=== PATIENT | male | born 1975 | race Caucasian/White ===

== ENCOUNTER 2023-10-26 10:50 | Emergency (ER) | payer BC, MEDICARE, SELFPAY ==
[2023-10-26 11:10] VITALS: BP 140/97
[2023-10-26 11:34] LABS: Urine Albumin Negative (Neg - Trace); Urine Bilirubin Negative (Negative); Urine Character Clear (Clear); Urine Color Yellow; Urine Glucose Negative (Negative); Urine Ketone Negative (Negative); Urine Leukocyte Negative (Negative); Urine Nitrite Negative (Negative); Urine Occult Blood Negative (Negative); Urine Specific Gravity 1.015 (<1.030); Urine Urobilinogen Negative (Neg - 1+)
[2023-10-26 11:36] LABS: % Basophils 0.6 % (0-2); % Eosinophils 0.4 % (0-6); % Immature Granulocytes 0.3 % (0-0.5); % Lymphocytes 26.9 % (20.5-51.1); % Monocytes 7.3 % (1.7-9.3); % Neutrophils 64.5 % (42.2-75.2); Absolute Basophils 0.1 10^3/uL (0-0.2); Absolute Lymphocytes 2.1 10^3/uL (1.2-3.4); Absolute Monocytes 0.6 10^3/uL (0.1-0.6); Absolute Neutrophils 5.2 10^3/uL (1.4-6.5); Hematocrit 47.9 % (39.0-52.0); Hemoglobin 16.6 g/dL (13.0-18.0); Mean Corp Hgb Conc. 34.7 g/dL (33.0-37.0); Mean Corpuscular Volume 86.5 fL (80.0-94.0); Mean Platelet Volume 10.2 fL (7.4-10.4); Nucleated Red Blood Cells % 0 % (-); Platelet Count 332 10^3/uL (130-400); Red Blood Cell Count 5.54 10^6/uL (4.70-6.10)
[2023-10-26 11:51] LABS: ALT (SGPT) 25 U/L (0-50); AST (SGOT) 22 U/L (17-59); Albumin 4.6 g/dl (3.5-5.0); Alkaline Phosphatase 69 U/L (38-126); Blood Urea Nitrogen 14 mg/dl (9-20); Calcium 10.4 mg/dl (8.4-10.2); Carbon Dioxide 25 mmol/L (22-30); Chloride 104 mmol/L (98-107); Glucose 98 mg/dl (70-99); Potassium 4.1 mmol/L (3.5-5.1); Sodium 142 mmol/L (135-145); Total Bilirubin 0.7 mg/dl (0.2-1.3); Total Protein 7.8 g/dl (6.3-8.2); eGFR > 60.00
[2023-10-26 12:00] LABS: Lipase 247 U/L (23-300)
[2023-10-26 12:41] VITALS: BMI 25.4
[2023-10-26] MEDS: NSS 1000 IV (13:21)
[2023-10-26] MEDS: ZOFRAN 4 MG IV (13:21)
[2023-10-26] MEDS: DILAUDID 1 MG IV ×2 (13:21→14:36)
--- NOTE | 2023-10-26 13:32 | ED.GENMED ---
History of Present Illness
General
Chief Complaint: Abdominal Pain
Time Seen by Provider: 10/26/23 12:34
Travel History
Have you had any contact with someone who has COVID-19?: No
Do you have any symptoms of coronavirus? Fever > 100 degrees, chills, cough, shortness of breath, sore throat, loss of taste or smell, muscle aches, or headache?: No
History of Present Illness
History of Present Illness:
48-year-old male with history of diverticulitis status post partial colectomy in June presents to the emergency department for evaluation of left-sided abdominal pain associated with nausea and vomiting. He did have some diarrhea yesterday that
is since resolved. Patient had multiple admissions to the hospital after his diverticular surgery, there was initially concern for anastomotic leak however his symptoms improved with pain control and bowel rest. States he been doing well for the
past month before pain worsened yesterday. He is chronically on opioids and was unable to take them this morning due to vomiting. He will follow-up with his pain specialist on Friday regarding his chronic left leg neuropathy. Denies any fevers
or chills
Past History
Past History
ED Past Medical History: HTN, Other (chronic nerve leg pain-narcotic dependent) and Other (DVT, diverticulitis, anxiety, depression, colon resection in June 2023)
ED Past Surgical History: Bowel resection, Orthopedic and Other (sinus surgery, varicose vein stripping X 2)
Social History
Tobacco: Non-smoker
Alcohol: Occasional
Drug: None
Personal:
Living: with family
Employment: Disabled
Family History
Family History: CAD and Other (Mother with MD, father with COPD stroke and Alzheimer's)
Review of Systems
Review of Systems
Allergies reviewed?: Yes
All Other Systems: ROS reviewed and negative except as documented in HPI and ROS
Phy Exam
Physical Exam
Physical Exam:
GEN: Well appearing, NAD, WDWN
Eyes: PERRLA, EOMs intact, no scleral icterus
HENT: NCAT, oral mucosa moist
Lungs: CTAB, no wheezes, rales, rhonchi, normal chest wall excursion
Cardiac: RRR, no M/R/G, no peripheral edema. Radial pulses 2+ bilat
Abdomen: S, mild left-sided tenderness and suprapubic tenderness, no rigidity, ND, NABS, no masses or hepatosplenomegaly
Neuro: AO x 3
MSK: No gross deformity or ecchymosis.
Skin: No rashes, petechiae. Normal color, no pallor or jaundice.
Psych: Calm, cooperative, proper hygiene
Course
Orders/Labs/Results
Orders:
Orders
10/26/23 11:26
CMP [Comprehensive Metabolic Panel] Urgent
Complete Blood Count/With Diff Urgent
Lipase Urgent
Urinalysis Reflex To Culture Urgent
Date Specimen was Collected: 10/26/23
Time Specimen was Collected: 11:16
10/26/23 13:08
CT Abd/Pel (IV only)-DH only Urgent
Comment:
Reason For Exam: LLQ pain
0.9% Sodium Chloride 1000 ml [Nss] 1,000 ml IV BOLUS
HYDROmorphone [Dilaudid] 1 mg IV NOW STA
Ondansetron Injectable [Zofran] 4 mg IV NOW STA
10/26/23 14:29
HYDROmorphone [Dilaudid] 1 mg IV NOW STA
10/26/23 16:41
HYDROmorphone [Dilaudid] 4 mg PO NOW STA
Abnormal Lab Results
10/26/23
11:26
Calcium 10.4 H mg/dl
(8.4-10.2)
10/26/23 11:26
10/26/23 11:26
Vital Signs
Initial and Last Documented VS:
Initial Vital Signs
Temp Pulse Resp BP Pulse Ox
98.4 F 99 18 140/97 99
10/26/23 11:10 10/26/23 11:10 10/26/23 11:10 10/26/23 11:10 10/26/23 11:10
Last Documented Vital Signs
Temp Pulse Resp BP Pulse Ox
98.4 F 90 18 140/90 99
10/26/23 11:10 10/26/23 16:41 10/26/23 16:40 10/26/23 16:41 10/26/23 16:40
MDM/Problems Addressed
MDM/Problems Addressed:
Patient's imaging is unremarkable. He required multiple doses of IV opioids in the emergency department to control pain. Based on chart review and the recurrent admissions to the hospital I do have some concern for potential opiate dependence
related issues especially given the escalating doses of Dilaudid given in the emergency department. Patient will see his pain specialist on Friday, recommend he discuss whether he needs an up titration of his chronic medications. He is clinically
stable with no signs of postsurgical complication
*Critical Care Note
Total Time (30-74mins, 75-104mins- exclusive of procedures): Not Applicable
ED Attending Note
-
Portions of this chart may have been created with voice recognition software.� Occasional wrong word or��sound alike� substitutions may have occurred due to the inherent limitations of voice recognition software.
Discharge Plan
Departure
Patient Disposition: Home (Routine Discharge)
Date of Disposition: 10/26/23
Time of Disposition: 16:41
Patient with high blood pressure during this ER visit?: No
Discharge Problem:
Chronic abdominal pain
Instructions: Abdominal Pain
Prescriptions:
New
hydromorphone [Dilaudid] 2 mg tablet
2 mg PO Q6H PRN (Reason: Pain) Qty: 6 0RF
No Action
gabapentin 600 mg Tablet
600 mg PO Q8H
risperidone [Risperdal] 2 mg Tablet
2 mg PO BID
divalproex [Depakote ER] 500 mg Tablet Extended Release 24 Hr
500 mg PO BID
oxycodone 10 mg Tablet
10 mg PO Q4HPRN PRN (Reason: mild pain)
Patient Comments:
09/03/2023, patient filled this medication on 09/01/2023 for 165 tablets according to PDMP.
lorazepam 0.5 mg Tablet
0.5 mg PO HSPRN PRN (Reason: anxiety)
Patient Comments:
09/03/2023, patient filled this medication on 09/02/2023 for 14 tablets according to PDMP.
lisinopril 5 mg Tablet
5 mg PO DAILY Qty: 30 0RF
gabapentin 300 mg Capsule
300 mg PO HS
Rx Instructions:
09/03/2023, take with one 600 mg tablet for a total of 900 mg at bedtime.
hydromorphone [Dilaudid] 2 mg tablet
2 mg PO Q6H PRN (Reason: Pain) Qty: 6 0RF
loperamide [Imodium A-D] 2 mg capsule
2 mg PO Q6H PRN (Reason: loose stool) Qty: 30 0RF
Referrals:
Fritz Avila MD [Family Provider] -
Interventions
Interventions:
*Risk Screen - Suicide Last Done: 10/26/23 11:10
*General Assessment Last Done: 10/26/23 12:41
*Neglect/Abuse Screening Last Done: 10/26/23 11:10
ED- Fall Risk Assessment Last Done: 10/26/23 12:41
*ED COVID-19 Vaccine History Last Done: 10/26/23 11:10
SY-Vkfehm-Jflutfwqtf Assessment Last Done: 10/26/23 12:41
[2023-10-26 16:41] VITALS: BP 140/90
[2023-10-26] MEDS: DILAUDID 4 MG PO (16:45)
== END 2023-10-26 16:41 | disposition home or self-care (01) ==
LOC: EMR 10:50
PROVIDERS: Emergency Medicine; EMERGENCY PHYSICIAN Emergency Medicine; FAMILY PHYSICIAN Internal Medicine
DX: G89.29 Other chronic pain (principal); R10.9 Unspecified abdominal pain
CPT/HCPCS: 99285; 96374; 96375; 96361; 96376; 74177; 80053; 81003; 83690; 85025; Q9967